=== PATIENT | male | born 1975 | race Caucasian/White ===

== ENCOUNTER 2016-12-27 10:04 | Emergency (ER) | payer MEDICARE, OTHER | END 2016-12-27 12:18 | disposition home or self-care (01) | LOC: ER1 10:04 | DX: I10 Essential (primary) hypertension (principal); F29 Unspecified psychosis not due to a substance or known physiological condition; E66.9 Obesity, unspecified; Z88.6 Allergy status to analgesic agent; Z79.899 Other long term (current) drug therapy | CPT/HCPCS: 99283 ==

== ENCOUNTER → 2021-09-28 | Outpatient (CLI) | payer MEDICARE, OTHER ==
[~2021-09-28] MED LIST: ZITHROMAX250 MG PO
== END ==
LOC: EXRD 14:19
DX: R60.9 Edema, unspecified (principal)
CPT/HCPCS: 93970

== ENCOUNTER 2021-12-21 09:56 | Emergency (ER) | payer MEDICARE, OTHER | END 2021-12-21 10:38 | disposition left against medical advice (07) | LOC: ER1 09:56 | DX: Z53.21 Procedure and treatment not carried out due to patient leaving prior to being seen by health care provider (principal) ==